=== PATIENT | male | born 1985 | race Caucasian/White ===

== ENCOUNTER 2021-09-13 14:07 | Outpatient (CLI) | payer OTHER, SELFPAY ==
[2021-09-13 13:14] LABS: Calcium* 9.8 mg/dL (8.4-10.6)
[2021-09-15 02:51] LABS: Vitamin D, 1,25-Dihydroxy 53.3 pg/mL (19.9-79.3)
== END 2021-09-13 14:08 | disposition home or self-care (01) ==
PROVIDERS: PCP Family Medicine; Visit Provider Nurse Practitioner Family
DX: Z79.899 Other long term (current) drug therapy (principal)
CPT/HCPCS: 82310; 82652; 84443

== ENCOUNTER 2021-09-30 10:25 | Outpatient (CLI) | payer OTHER, SELFPAY ==
[2021-09-30 12:32] LABS: Albumin* 4.8 g/dL (3.3-5.0); Chloride* 101 mmol/L (96-114); Potassium* 5.2 mmol/L (3.6-5.1); Sodium* 138 mmol/L (135-149)
[2021-09-30 12:34] LABS: Creatinine* 1.1 mg/dL (0.5-1.5); Estimated Glomerular Filt Rate 89 ml/min
[2021-09-30 12:35] LABS: Alanine Aminotransferase* 128 U/L (4-50); Alkaline Phosphatase* 119 U/L (40-150); Aspartate Amino Transferase* 57 U/L (12-35); Bilirubin Total* 0.2 mg/dL (0.1-1.5); Blood Urea Nitrogen* 19 mg/dL (5-24); Calcium* 9.9 mg/dL (8.4-10.6); Carbon Dioxide* 27 mmol/L (20-32); Glucose* 114 mg/dL (60-115); Total Protein* 8.7 g/dL (6.0-8.3)
== END 2021-09-30 10:26 | disposition home or self-care (01) ==
PROVIDERS: PCP Family Medicine; Visit Provider Family Medicine
DX: E83.51 Hypocalcemia (principal); R79.89 Other specified abnormal findings of blood chemistry; Z01.818 Encounter for other preprocedural examination
CPT/HCPCS: 80053

== ENCOUNTER 2021-10-02 06:36 | Day surgery (SDC) | payer OTHER, SELFPAY ==
[2021-10-02] VITALS (26 sets, daily range): BP systolic 119–169; BP diastolic 84–114; PULSE 61–115; RESP 10–18; TEMP 36.4–36.8; O2SAT 88–98; BMI 31.8
[2021-10-02] MEDS: OXYCODONE (CR) 10 MG TAB.ER.12H PO (06:40)
[2021-10-02] MEDS: CELECOXIB 200 MG CAPSULE PO ×2 (06:40→20:57)
[2021-10-02] MEDS: ACETAMINOPHEN 500 MG TABLET 1000 MG PO ×3 (06:40→23:24)
[2021-10-02] MEDS: LACTATED RINGERS 1000 ML 1,000 ML 100 ML IV (07:00)
--- NOTE | 2021-10-02 07:11 | CRLHL7_ITS ---
For Patients: As a result of the Century Cures Act, medical imaging exams and procedure reports are released immediately into your electronic medical record. You may view this report before your referring provider. If you have questions, please contact your health care provider. INDICATION: Total hip arthroplasty. TECHNIQUE: Intraoperative C-arm fluoroscopy. IMPRESSION: Intraoperative C-arm fluoroscopy was provided. Fluoroscopy time 71.1 seconds. One images were captured. Dictated by Herman Austin MD @ 10/02/2021 11:33:09 AM (Electronically Signed)
--- NOTE | 2021-10-02 07:31 | CRLHL7_ITS ---
For Patients: As a result of the Cures Act, medical imaging exams and procedure reports are released immediately into your electronic medical record. You may view this report before your referring provider. If you have questions, please contact your health care provider. Indication: Post Op Technique: Right hip 2 views Comparison: None Findings/mpression: Postoperative changes from right total hip arthroplasty which appear well-aligned. No evidence of periprosthetic fracture. Postoperative subcutaneous emphysema. Dictated by Tani Morris MD @ 10/02/2021 11:55:22 AM (Electronically Signed)
[2021-10-02] MEDS: MIDAZOLAM HCL 1 MG/ML inj IVP (07:46)
[2021-10-02] MEDS: fentaNYL 100 MCG/2 ML inj IVP (07:46)
[2021-10-02] MEDS: ETHYL CHLORIDE 1 APPLICATION 1 APPLIC TOPICAL (07:48)
[2021-10-02] MEDS: SODIUM CHLORIDE 0.9 % (FLUSH) 10 ML SYRINGE IVF (07:48)
--- NOTE | 2021-10-02 07:49 | SUR.PREOP ---
TIME?OUT:?0745 PT/RN SACHIN /VIDAL MCCLENDON?VERIFICATION?OF?SURGICAL?SITE RIGHT HIP,?PROCEDURE RIGHT NERVE BLOCK,?AND?CONSENT OBTAINED?PRIOR?TO?INVASIVE?PROCEDURE.
--- NOTE | 2021-10-02 07:53 | W.PM.NB ---
Nerve Block Nerve Block Time Seen by Provider: 07:54 Date Seen: 10/02/21 Type of block requested by surgeon for post-operative analgesia: MICHAEL/LFCN Time out performed: Yes Verification of patient name: Yes Verification of date of : Yes Site marking: site marked Name of person performing procedure: Nino Continuous monitoring Was continuous monitoring of O2 sat, B/P, home restoration service cleaner, recorded every 15 minutes?: Yes Procedure Checklist: sterile prep, needles and gloves Ultrasound guided. Images saved: Yes Medications given in 5ml increments after negative aspiration: Ropivicaine %: 0.5 mL: 20 Needle gauge: 20 Decadron (mg): 10 Precedex (mcg): 25 Patient tolerated procedure well: Yes Additional comments: Needle noted adjacent to nerve Block Charges Block Charge (with Pro Fee): Other Periph Nerve Block Use of Ultrasound Machine for Block: Yes- US Guidance/pain block
[2021-10-02] MEDS: CEFAZOLIN 2 GM INJ IVP (08:05)
--- NOTE | 2021-10-02 08:55 | SUR.OPER ---
PATIENT QUESTIONS ANSWERED SATISFACTORILY PREOPERATIVELY.? PATIENT BROUGHT TO OR #2 PER CART AFTER BLOCK.? Patient positioned supine on OR #2 bed.?The perioperative?team supported arms bilaterally on arm boards.? Final approval of positioning by surgeon.?
--- NOTE | 2021-10-02 09:59 | SUR.OPER ---
IRRIGATION OF THE RIGHT HIP W/3000cc BAG NACL AT 09:13.
--- NOTE | 2021-10-02 10:02 | P.ORPRC_ITS ---
Procedure Note Date of procedure: 10/02/21 Procedure: PREOPERATIVE DIAGNOSIS: 1. Right hip osteoarthritis, severe, primary POSTOPERATIVE DIAGNOSIS: 1. Right hip osteoarthritis, severe, primary PROCEDURE: 1. Right total hip arthroplasty-anterior approach 2. 08930 - intraoperative fluoroscopy up to 1 hour. SURGEON: Stephen Vasquez MD. FUNDRAISING SALE REPRESENTATIVE: Naun Saucedo PA-C; Christiano POLLACK - Of note, a skilled senior office assistant was critical for this case to aid in patient positioning, tissue retraction, limb manipulation/positioning, and closure. ANESTHESIA: Spinal anesthetic EBL: 250 mL IMPLANTS: DePuy J&J uncemented total hip Arnold cup size 52, hole eliminator, +4 neutral liner Actis stem, standard offset, size 5 +1.5 mm ceramic 36 mm head COMPLICATIONS: None evident INDICATIONS: The patient is a pleasant 36-year-old male who has experienced severe right hip pain and difficulty bearing weight. Workup included x-rays and an MRI which revealed avascular necrosis. This was identified approximately 1 year ago. At that time, he had no collapse of the femoral head. Cord decompression was recommended. The patient did not return until this past late spring or early summer. At that time, he was found to have collapse of the femoral head. Given the deformity, the dysfunction, and the pain, as well as the failure of nonoperative management, recommendation was made for surgery. FINDINGS: Femoral head collapse consistent with what the radiographs had showed. This portion was soft when palpated on the femoral head clearly not healed despite it being multiple weeks if not months from the collapse. There is a small effusion upon entering the joint as well. DESCRIPTION OF PROCEDURE: Following a thorough discussion of risks, benefits, and alternatives consent was obtained and the right hip was marked. The patient was brought to the operating room and placed supine on the operating table. Induction of anesthesia was undertaken. 2 g IV Ancef and 1 g tranexamic acid was administered within 1 hr of incision preoperatively. Proper time-out was performed identifying proper patient, site, procedure. The operative extremity was prepped and draped in the appropriate sterile fashion using ChloraPrep after the patient was positioned on the Andrews table with head in neutral alignment and all bony prominences well padded. C-arm fluoroscopic imaging was utilized to confirm proper pelvis rotation and position, and to get true AP films of both the contralateral left, and the affected right hip. This is for comparison. A longitudinal incision was made starting approximately 1 cm distal to the ASIS, and 3-4 cm lateral. The incision was extended distally aiming toward the lateral border the patella. Sharp incision through skin and bovie cautery through the subcutaneous tissue allowed identification of the TFL fascia. This was sharply divided, and the fascia bluntly released from the muscle fibers as we dissected medial. Upon coming to the medial border, we were able to retract the TFL laterally, and penetrated the deeper fascia and identify the crossing circumflex vessels. These were ligated/cauterized. The rectus was elevated from the capsule, and retractors placed laterally and medially along the femoral neck to help with visualization of the capsule. We then performed an inverted T capsulotomy. The capsule was tagged for later repair. Retractors were placed inside the capsule. The femoral neck was visualized after releasing medially down to the lesser trochanter, along the saddle laterally, and up onto the acetabulum. The femoral neck cut was made in line with our preoperative templating. The head was removed in a single piece, and sized. We turned our attention to acetabular preparation. Initially, the labrum was resected from around the perimeter, the pulvinar was excised, allowing us to visualize the false wall. We started the reaming with a 43 mm reamer. This was medialized down to the true wall. We then enlarged our reamers sequentially up to one size less than the selected cup size. We trialed at the same size and found it to have an excellent fit. The selected cup was then opened, inserted, and impacted in line with the goal of 40? of abduction, and 20-25? of anteversion. This was confirmed on C-arm fluoroscopic imaging to be in the appropriate/goal position. Once the cup was placed we placed a hole eliminator and a liner consistent with preop planning. Attention was turned to the femoral preparation. The limb was extended, externally rotated, and adducted. The posteromedial capsule was released, as retractors were placed allowing excellent access to the proximal femur. Initially a boxing promoter was followed by canal finder followed by various broaches. We broached sequentially up to the size noted above, found it to have excellent rotational control, and trialing various heads and necks, revealed th at appropriate neck offset, and the above noted head size provided the greatest stability, and advent of length, and offset. C-arm fluoroscopic imaging confirmed position of the stem, as well as leg lengths, which were compared with the pre procedure all fluoroscopic images. Trial implants were removed, the real femoral stem inserted, as was the appropriate head. After reducing, the leg was placed through range of motion and stability was confirmed anterior, posterior, and lateral. A 3 min Betadine soak was then performed, and thorough irrigation with normal saline followed. Closure of the capsule was performed with #1 PDS. Bleeding was confirmed to be controlled at this stage, and the TFL fascia was closed with #0 strata fix. Subcutaneous, and subcuticular closure was performed with 2-0 Vicryl and 4-0 Monocryl, respectively. Dressings were applied, and the patient was awoken from anesthesia and transferred the PACU in stable condition. A skilled senior office assistant was critical for this case to aid in patient positioning, tissue retraction, acetabular and proximal femoral exposure, limb manipulation/positioning, dislocation/relocation, patient safety, and closure. PLAN: 1. Weight bear as tolerated operative extremity. 2. 23 hr perioperative antibiotics. 3. Ice. 4. PT/OT consults for ambulation assistance/mobility education. 5. Social work consult for discharge planning. 6. DVT prophylaxis with at SCDs, Sloan Rothman, and Xarelto x5 days followed by aspirin for a total of 1 month verses Xarelto for a full month due to protein C deficiency.
--- NOTE | 2021-10-02 10:48 | W.ANESCHARGE ---
Anesthesia Charges Start Date/Time Anesthesia Start Date: 10/02/21 Anesthesia Start Time: 07:55 Stop Date/Time Anesthesia Stop Date: 10/02/21 Anesthesia Stop Time: 10:47 Summary Emergency: No
--- NOTE | 2021-10-02 10:50 | W.ANESCHARGE ---
Anesthesia Charges Start Date/Time Anesthesia Start Date: 10/02/21 Anesthesia Start Time: 07:55 Stop Date/Time Anesthesia Stop Date: 10/02/21 Anesthesia Stop Time: 10:47 Summary Emergency: No
[2021-10-02] MEDS: fentaNYL 100 MCG/2 ML inj 50 MCG IVP ×2 (11:04→11:10)
--- NOTE | 2021-10-02 11:32 | SUR.PHASEI ---
PT. VITAL SIGNS STABLE. TRANSFER PT. TO M/S VIA BED.
[2021-10-02] MEDS: LACTATED RINGERS 1000 ML 1,000 ML 75 ML IV (11:49)
[2021-10-02] MEDS: HYDROmorphone 0.5 mg/0.5 ml inj IVP ×5 (12:01→20:58)
--- NOTE | 2021-10-02 12:15 | PM.IMPN1 ---
Progress Note: A&P Assessment and plan (1) Avascular necrosis of bone of hip: Problem details: right Status: Acute Plan 1. s/p Right total hip arthroplasty-anterior approach 2. Hx of alcoholism 3. Hx of Prot C deficiency 4. Hx of Anxeity and Depression PLan -pain control, diet, dvt ppx per surgery service -cbc and bmp in AM Subjective Date Seen: 10/02/21 Interval history: s/p Right total hip arthroplasty-anterior approach Doing well following surgery post op pain controlled denies chest pain, sob, nausea, vomiting Exam Narrative: Exam Narrative: Gen: no acute distress HEENT: NCAT EOMI MMM CV: RRR normal s1 s2 Lungs: CTAB Abd: soft, nt, nd Neuro: AOX3; nonfocal screening exam MSK: age appropriate muscle mass Const: Vital Signs, click to edit/add: Vital Signs - 24 hr 10/02/21 06:55 10/02/21 07:46 10/02/21 10:44 Temperature 98.1 F 97.6 F Pulse Rate 92 84 68 Respiratory Rate 16 16 18 Blood Pressure 130/85 122/85 121/84 Pulse Oximetry 97 98 95 10/02/21 10:50 10/02/21 10:55 10/02/21 11:00 Temperature 97.5 F L Pulse Rate 61 69 89 Respiratory Rate 16 14 12 Blood Pressure 129/84 135/85 119/85 Pulse Oximetry 96 96 94 10/02/21 11:05 10/02/21 11:10 10/02/21 11:15 Temperature 97.5 F L Pulse Rate 75 82 79 Respiratory Rate 10 L 12 10 L Blood Pressure 141/91 H 135/88 132/85 Pulse Oximetry 94 93 96 10/02/21 11:20 10/02/21 11:25 10/02/21 11:30 Temperature 97.7 F Pulse Rate 89 89 87 Respiratory Rate 10 L 12 12 Blood Pressure 142/89 H 149/84 H 143/93 H Pulse Oximetry 96 95 96
[2021-10-02] MEDS: OXYCODONE 5 MG TABLET PO ×5 (12:40→23:24)
[2021-10-02] MEDS: hydrOXYzine pamoate 25 MG CAPSULE PO ×3 (12:40→20:58)
[2021-10-02] MEDS: CEFAZOLIN 2 GM in 0.9 % SODIUM CHLORIDE Mini-bag 100 ML IVPB ×2 (13:57→21:55)
--- NOTE | 2021-10-02 17:35 | PC.NURSE ---
PATIENT TO FLOOR FROM PACU AROUND 1140, ALERT AND ORIENTED, STRONG MOVEMENT OF LOWER EXTREMITY, DRESSING TO RIGHT HIP CDI, REPORTING PAIN 6/10 INITIALLY A BURNING HAS SINCE MOVED TO A MORE PAINFUL TIGHTNESS 6/10 AT REST AND 8/10 WITH MOVEMENT, UP SBA WITH WALKER AND BELT TOLERATING WELL, TOLERATING REGULAR DIET WITH NAUSEA OR VOMITING, KNEE TEDS, FOOT SCDS, AT BEDSIDE AND VERY SUPPORTIVE.
[2021-10-02] MEDS: SENNOSIDES 1 TAB TABLET 2 TAB PO (20:57)
[2021-10-02] MEDS: BUSPIRONE 10 MG TABLET PO (21:55)
[2021-10-03] MEDS: OXYCODONE 5 MG TABLET PO ×4 (02:28→11:47)
[2021-10-03 03:00] VITALS: BP 158/103; PULSE 104; RESP 16; TEMP 36.6; O2SAT 95
--- NOTE | 2021-10-03 05:13 | PC.NURSE ---
Shift 7p-7a: Pt. AOx4, follows commands. VSS on RA. Pt. ambulated in hallways w/ RW multiple times during shift, and ambulating to toilet without difficulties. Pt. receiving oxycodone PRN for pain management, with use of dilauded PRN for pain breakthrough. Pt. tolerating diet, saline locked for adequate PO, received scheduled senna, BM pending. Pt.'s RT hip surgical incision site dressing C/D/I, pt. applying ice packs PRN. Plan for possible discharge today
[2021-10-03] MEDS: ACETAMINOPHEN 500 MG TABLET 1000 MG PO ×2 (05:52→11:47)
[2021-10-03] MEDS: CEFAZOLIN 2 GM in 0.9 % SODIUM CHLORIDE Mini-bag 100 ML IVPB (05:53)
[2021-10-03] MEDS: HYDROmorphone 0.5 mg/0.5 ml inj IVP (06:40)
[2021-10-03 07:00] VITALS: BP 112/59; PULSE 98; RESP 16; TEMP 36.6; O2SAT 95
[2021-10-03 07:43] LABS: Hematocrit 39.9 % (37.0-53.0); Hemoglobin* 13.4 gm/dL (13.5-17.5); Immature Granulocytes Abs Auto 0.02 K/uL (0.00-0.30); Lymphocytes Percent Auto 10.4 % (20-44); Mean Corpuscular HGB Conc 34 gm/dL (32-36); Mean Corpuscular Hemoglobin 30 pg (26-34); Mean Corpuscular Volume 89 fL (80-100); Monocytes Percent Auto 11.1 % (0.0-11.0); Neutrophils Percent Auto 78.3 % (42.0-72.0); Platelet Count* 319 K/uL (140-440); RDW Coefficient of Variation % 13.3 % (11.5-15.5); Red Blood Count 4.51 m/uL (4.30-5.90)
[2021-10-03 07:50] LABS: Slide Review Reflex No
[2021-10-03 07:55] LABS: Chloride* 102 mmol/L (96-114); Potassium* 4.3 mmol/L (3.6-5.1); Sodium* 137 mmol/L (135-149)
[2021-10-03 07:58] LABS: Blood Urea Nitrogen* 19 mg/dL (5-24); Carbon Dioxide* 29 mmol/L (20-32); Est. Creatinine Clearance* 101.14; Estimated Glomerular Filt Rate 99 ml/min
[2021-10-03 07:59] LABS: Calcium* 8.5 mg/dL (8.4-10.6); Glucose* 115 mg/dL (60-115)
[2021-10-03] MEDS: BUSPIRONE 10 MG TABLET PO (08:40)
[2021-10-03] MEDS: CELECOXIB 200 MG CAPSULE PO (08:40)
[2021-10-03] MEDS: SENNOSIDES 1 TAB TABLET 2 TAB PO (08:41)
[2021-10-03] MEDS: VENLAFAXINE ER 75 MG CAPSULE 375 MG PO (08:41)
[2021-10-03] MEDS: RIVAROXABAN 10 MG TABLET PO (08:41)
[2021-10-03] MEDS: hydrOXYzine pamoate 25 MG CAPSULE PO ×2 (08:52→11:47)
--- NOTE | 2021-10-03 09:53 | PM.ORPN ---
Subjective Subjective Date Seen: 10/03/21 Principal diagnosis: Status postop day 1, right total hip arthroplasty - anterior approach Interval history: Patient reports doing well. No acute events over night. Pain managed with scheduled /PRN medications and ice. Reports that Dilaudid does better for him. He has also complained of ipsilateral right knee pain which is chronic. This is better with using knee brace. DVT prophylaxis rivaroxaban, bilateral knee high Sloan stockings, and SCDs. Denies fevers, chills, aches, N/V, CP, SOB/LENZ, tachycardia, or lightheadedness. Feels that his elevated heart rate and blood pressure is due to anxiety. He is taking his anxiety medications. Ortho Exam Narrative Exam Narrative: -Patient appears comfortable in bed; no apparent acute distress; watching TV -Alert and oriented times 3 -Operative hip moderately swollen; soft tissues supple; no obvious erythema. No ecchymosis. Warmth appropriate -Surgical dressing clean, dry, intact; no obvious drainage, no erythematous streaking peripheral to the bandage -Bilateral calves soft and supple; no significant swelling, edema, tenderness, erythema, discoloration, warmth, or palpable cords -2+ DP/PT pulses, intact dermatomes and myotomes distally (5/5 strength). Mild numbness about the lateral femoral cutaneous nerve distribution. Const Vital Signs, click to edit/add: Vital Signs - 24 hr 10/02/21 10:44 10/02/21 10:50 10/02/21 10:55 Temperature 97.6 F Pulse Rate 68 61 69 Pulse Rate [Left Pulse Oximeter] Respiratory Rate 18 16 14 Blood Pressure 121/84 129/84 135/85 Blood Pressure [ARMR] Pulse Oximetry 95 96 96 10/02/21 11:00 10/02/21 11:05 10/02/21 11:10 Temperature 97.5 F L Pulse Rate 89 75 82 Pulse Rate [Left Pulse Oximeter] Respiratory Rate 12 10 L 12 Blood Pressure 119/85 141/91 H 135/88 Blood Pressure [ARMR] Pulse Oximetry 94 94 93 10/02/21 11:15 10/02/21 11:20 10/02/21 11:25 Temperature 97.5 F L Pulse Rate 79 89 89 Pulse Rate [Left Pulse Oximeter] Respiratory Rate 10 L 10 L 12 Blood Pressure 132/85 142/89 H 149/84 H Blood Pressure [ARMR] Pulse Oximetry 96 96 95 10/02/21 11:30 10/02/21 11:40 10/02/21 11:45 Temperature 97.7 F 97.7 F Pulse Rate 87 95 Pulse Rate [Left Pulse Oximeter] Respiratory Rate 12 16 16 Blood Pressure 143/93 H Blood Pressure [ARMR] 144/97 H 134/100 H Pulse Oximetry 96 95 10/02/21 12:00 10/02/21 12:15 10/02/21 12:30 Temperature 97.7 F 97.7 F Pulse Rate Pulse Rate [Left Pulse Oximeter] 101 H 107 H 115 H Respiratory Rate 16 16 16 Blood Pressure Blood Pressure [ARMR] 151/114 H 154/101 H 157/101 H Pulse Oximetry 93 91 93 10/02/21 13:00 10/02/21 13:30 10/02/21 14:00 Temperature Pulse Rate Pulse Rate [Left Pulse Oximeter] 103 H 104 H 100 Respiratory Rate 16 18 16 Blood Pressure Blood Pressure [ARMR] 145/102 H 148/100 H 124/95 H Pulse Oximetry 91 93 90 10/02/21 15:00 10/02/21 16:00 10/02/21 17:00 Temperature 97.7 F Pulse Rate Pulse Rate [Left Pulse Oximeter] 110 H 106 H 100 Respiratory Rate 16 16 16 Blood Pressure Blood Pressure [ARMR] 167/111 H 139/110 H 149/106 H Pulse Oximetry 90 88 90 10/02/21 18:02 10/02/21 19:00 10/02/21 23:00 Temperature 98.3 F 97.8 F Pulse Rate Pulse Rate [Left Pulse Oximeter] 110 H 102 H 100 Respiratory Rate 16 16 16 Blood Pressure Blood Pressure [ARMR] 149/107 H 162/99 H 169/101 H Pulse Oximetry 93 93 95 10/03/21 03:00 10/03/21 07:00 Temperature 98 F 98 F Pulse Rate Pulse Rate [Left Pulse Oximeter] 104 H 98 Respiratory Rate 16 16 Blood Pressure Blood Pressure [ARMR] 158/103 H 112/59 L Pulse Oximetry 95 95 Assessment and Plan Assessment and plan (1) Avascular necrosis of bone of hip: Problem details: right Status: Acute (2) Status post total hip replacement, right: Problem details: POD1 - anterior approach Status: Acute Assessment and Plan: - Complete 23 hour perioperative antibiotics. - PT/OT consult for education and assistance. - Social work consult for discharge planning - Prescribed analgesics as needed - DVT prophylaxis: Rivaroxaban (1 month duration due to C deficiency) bilateral knee high Sloan stockings and SCDs - Anticipation is for discharge to home with spouse today 10/03/2021 if the patient remains medically stable, pain is controlled, and they are safe with mobilization. Patient has elevated heart rate and blood pressure per him appear to be more related to stress/anxiety; he is not having any chest pain or shortness of breath. (3) Protein C deficiency: Status: Acute (4) Acute blood loss anemia: Problem details: Surgically related, hemoglobin 13.4-asymptomatic Status: Acute
--- NOTE | 2021-10-03 10:01 | P.DS_ITS ---
DS: Providers Provider Date Seen: 10/03/21 Date of admission: [facility] Primary care physician: Efraín Martínez MD Consults: 10/02/21 11:42 Consult to Occupational Therapy [CONS] Routine Comment: Reason(s) for OT Consult:: ADLs Prior to Discharge Any Restrictions?:: No Restrictions Comment: Consult to Physical Therapy [CONS] Routine Comment: Ambulate in [place] today Reason(s) for PT Consult:: Evaluate and Treat Any Restrictions?:: No Restrictions Comment: Nursing Activity Consult to Physician [CONS] Routine Comment: Consulting Provider: Hospitalists Has provider been notified: No Consult to Garment Turner [CONS] Routine Comment: Reason for Consult:: Discharge Planning Needs Attending Physician on discharge: Stephen Vasquez MD Date of Discharge: 10/03/21 DS: Diagnosis Discharge Diagnosis (1) Avascular necrosis of bone of hip: Status: Acute Problem details: right (2) Status post total hip replacement, right: Status: Acute Problem details: anterior approach, 10/02/21 (3) Protein C deficiency: Status: Acute (4) Acute blood loss anemia: Status: Acute Problem details: Surgically related, hemoglobin 13.4-asymptomatic DS: Summary Hospital Course Hospital Course: The patient has a history of right hip femoral head avascular necrosis. After appropriate preoperative evaluation, the patient underwent right total hip arthroplasty. Postoperatively given anticoagulation for deep vein thrombosis p rophylaxis (rivaroxaban for 30 days due to protein C deficiency). They progressed to PT/OT and were felt ready and prepared for discharged to home with appropriate pain medication and anticoagulation medications. Status at Discharge Functional status at discharge: uses cane/walker Overall status at discharge: patient is progressing back to baseline Time Spent with Patient Time attestation: Total time spent providing and/or coordinating discharge services: Time spent: Less than 30 minutes Exam Const: Vital Signs, click to edit/add: Vital Signs - 24 hr 10/02/21 10:44 10/02/21 10:50 10/02/21 10:55 Temperature 97.6 F Pulse Rate 68 61 69 Pulse Rate [Left P ulse Oximeter] Respiratory Rate 18 16 14 Blood Pressure 121/84 129/84 135/85 Blood Pressure [AR MR] Pulse Oximetry 95 96 96 10/02/21 11:00 10/02/21 11:05 10/02/21 11:10 Temperature 97.5 F L Pulse Rate 89 75 82 Pulse Rate [Left P ulse Oximeter] Respiratory Rate 12 10 L 12 Blood Pressure 119/85 141/91 H 135/88 Blood Pressure [AR MR] Pulse Oximetry 94 94 93 10/02/21 11:15 10/02/21 11:20 10/02/21 11:25 Temperature 97.5 F L Pulse Rate 79 89 89 Pulse Rate [Left P ulse Oximeter] Respiratory Rate 10 L 10 L 12 Blood Pressure 132/85 142/89 H 149/84 H Blood Pressure [AR MR] Pulse Oximetry 96 96 95 10/02/21 11:30 10/02/21 11:40 10/02/21 11:45 Temperature 97.7 F 97.7 F Pulse Rate 87 95 Pulse Rate [Left P ulse Oximeter] Respiratory Rate 12 16 16 Blood Pressure 143/93 H Blood Pressure [AR MR] 144/97 H 134/100 H Pulse Oximetry 96 95 10/02/21 12:00 10/02/21 12:15 10/02/21 12:30 Temperature 97.7 F 97.7 F Pulse Rate Pulse Rate [Left P ulse Oximeter] 101 H 107 H 115 H Respiratory Rate 16 16 16 Blood Pressure Blood Pressure [AR MR] 151/114 H 154/101 H 157/101 H Pulse Oximetry 93 91 93 10/02/21 13:00 10/02/21 13:30 10/02/21 14:00 Temperature Pulse Rate Pulse Rate [Left P ulse Oximeter] 103 H 104 H 100 Respiratory Rate 16 18 16 Blood Pressure Blood Pressure [AR MR] 145/102 H 148/100 H 124/95 H Pulse Oximetry 91 93 90 10/02/21 15:00 10/02/21 16:00 10/02/21 17:00 Temperature 97.7 F Pulse Rate Pulse Rate [Left P ulse Oximeter] 110 H 106 H 100 Respiratory Rate 16 16 16 Blood Pressure Blood Pressure [AR MR] 167/111 H 139/110 H 149/106 H Pulse Oximetry 90 88 90 10/02/21 18:02 10/02/21 19:00 10/02/21 23:00 Temperature 98.3 F 97.8 F Pulse Rate Pulse Rate [Left P ulse Oximeter] 110 H 102 H 100 Respiratory Rate 16 16 16 Blood Pressure Blood Pressure [AR MR] 149/107 H 162/99 H 169/101 H Pulse Oximetry 93 93 95 10/03/21 03:00 10/03/21 07:00 Temperature 98 F 98 F Pulse Rate Pulse Rate [Left P ulse Oximeter] 104 H 98 Respiratory Rate 16 16 Blood Pressure Blood Pressure [AR MR] 158/103 H 112/59 L Pulse Oximetry 95 95 DS: Data Data Completed and Pending Labs on day of discharge: Labs from last 24 hours 10/03/21 10/03/21 07:07 07:07 WBC 11.00 RBC 4.51 Hgb 13.4 L Hct 39.9 MCV 89 MCH 30 MCHC 34 RDW Coeff of Mahad 13.3 Plt Count 319 Neut % (Auto) 78.3 H Lymph % (Auto) 10.4 L Fisher % (Auto) 11.1 H Eos % (Auto) 0.0 Baso % (Auto) 0.0 Neut # (Auto) 8.60 H Lymph # (Auto) 1.10 Fisher # (Auto) 1.20 H Eos # (Auto) 0.00 Baso # (Auto) 0.00 Abs Immat Gran (auto) 0.02 Sodium 137 Potassium 4.3 Chloride 102 Carbon Dioxide 29 BUN 19 Creatinine 1.0 Estimated Creat Clear 101.14 Estimated GFR 99 Glucose 115 Calcium 8.5 Discharge Plan Discharge Disposition: Home, Self-Care Discharging Surgeon: Stephen Vasquez Follow-Up Appointment: [facility] - justina - previously scheduled. Prescriptions: New acetaminophen 500 mg capsule 500 - 1,000 mg PO Q6H MDD 4000mg PRNQty: 100 0RF sennosides-docusate sodium [Senna-S] 8.6-50 mg tablet 1 - 4 tab-cap PO BID PRN (Reason: constipation) Qty: 60 0RF Rx Instructions: Hold medication if experiencing loose stools. oxycodone 5 mg tablet 2.5 - 5 mg PO Q4-6H MDD 6 PRN (Reason: pain) Qty: 42 0RF Rx Instructions: Take as needed for postop pain: 2.5mg mild pain, 5mg moderate-severe pain; wean as tolerated. rivaroxaban 10 mg tablet 10 mg PO DAILY Qty: 29 0RF Rx Instructions: Medication for deep vein clot prevention post surgery. Will take for full month postop due to Protein C Deficiency. venlafaxine [Effexor XR] 150 mg capsule,extended release 24hr 300 mg PO QAM Qty: 60 2RF Rx Instructions: total dose is 375mg. venlafaxine [Effexor XR] 75 mg capsule,extended release 24hr 75 mg PO QAM Qty: 30 2RF Rx Instructions: take 75mg with the other dosing of 300mg for total of 375mg. Continued buspirone 10 mg tablet 10 mg PO BID Qty: 60 1RF naltrexone 50 mg tablet 50 mg PO .qod Qty: 30 0RF hydroxyzine pamoate [Vistaril] 25 mg capsule 25 mg PO QID PRN Discontinued venlafaxine [Effexor XR] 150 mg capsule,extended release 24hr 300 mg PO QPM Qty: 60 1RF Rx Instructions: take two cap po qd upon awakening for mood, anxiety No Action venlafaxine 150 mg tablet extended release 24 hr 300 mg PO QAM Qty: 180 1RF Rx Instructions: take two tab po every morning for mood Activity Level: Activity as Tolerated, Weight Bearing as Tolerated, Use Cane and Use Walker Activity Detail: Wound: ?Do not remove original dressing; we will remove this at first postop visit in 1 week. Only remove dressing if integrity is in question. ?No immersing wound in water; showering okay; light scrub with your hand and body soap, rinse, dab dry ?Sutures are under the skin, will dissolve; allow surgical glue to come off naturally; do not scrub the wound or apply ointments/lotions ?Call our office with any redness that streaks, excessive drainage from the wound, or wound gapping. Ice/Elevate: ?Ice as needed for swelling and discomfort (cryocuff or ice pack); elevate frequently above the heart SLOAN socks: ?Wear for 1 month, remove for 1 hour 3 times per day ?These are frustrating to take on/off, but are important for blood clot prevention for 1 month after surgery Blood Clot Prevention (DVT): ?Medication: rivaroxaban Driving: ?Do not drive while taking narcotic pain medication ?Anticipate 4-6 weeks no driving if operative leg is driving leg Dental: ?No elective dental work for 6 months post-op. If there is an urgent/emergent dental need, contact our office for an antibiotic prescription. Smoking/Alcohol: ?Do not smoke; do no drink alcohol especially when taking postoperative oral narcotic medication Seek Care from you Primary Care Provider if you experience the following issues in the postoperative phase and beyond: ?Bacterial infections such as: pneumonia, bacterial skin infection (cellulitis), UTI, high fever, chills unrelated to the operative body part - call your primary care physician urgently for treatment in hopes to protect your health and the metal implant. Referrals: ?PT, OT per patient preference - evaluate treat total hip arthroplasty protocol (the training, ROM, ADLs, knee-high Sloan socks) Follow up: ?Ortho surgeon follow-up in 6 weeks; repeat radiographs AP pelvis, cross-table lateral right hip ?PA-C visit in 1 week *If there are any acute concerns regarding your surgery, please call our orthopedic clinic ([phone]) Discharge Diet: Regular Patient Instructions: Acetaminophen (By mouth), Oxycodone, Rapid Release (By mouth), Venlafaxine (By mouth) (Effexor, Effexor XR), Rivaroxaban (By mouth), Senna (By mouth), Total Hip Replacement (DC) Forms: Work/Release Restrictions Follow-up: [facility] [Other] - 10/04/21 10:45 am Efraín Martínez MD [Primary Care Provider] - Naun Saucedo, DAMION [Physician Automobile Mechanic Helper] - 10/08/21 1:00 pm ([facility]) Discharge Orders: Discharge Order (Routine); Ordered 10/03/21 Ordered By: Naun Saucedo
[2021-10-03 11:00] VITALS: BP 151/92; PULSE 97; RESP 16; TEMP 36.6; O2SAT 95
--- NOTE | 2021-10-03 13:17 | PC.NURSE ---
PATIENT DISCHARGED TO HOME WITH , UP SBA WITH WALKER AND BELT TOLERATING WELL, REPORTING PAIN IN RIGHT HIP AND RIGHT KNEE 6-10/16 BEING MANAGED WITH PRN OXYCODONE,VISTARIL AND SCHEDULED TYLENOL, TOLERATING REGULAR DIET NO NAUSEA OR VOMITNG, DRESSING CDI, PATIENT VERBALIZED UNDERSTANDING OF DISCHARGE INFORMATION AND HAD NO FURTHER QUESTIONS AT THIS TIME, LEFT TO HOME AROUND 1238.
--- NOTE | 2021-10-03 18:09 | P.IMPN_ITS ---
Progress Note: A&P Assessment and plan (1) Avascular necrosis of bone of hip: Problem details: right Status: Acute Assessment and Plan: Status post total right hip arthroplasty 10/03/19 (2) Status post total hip replacement, right: Problem details: anterior approach, 10/02/21 Status: Acute Assessment and Plan: Doing well postoperatively. Will continue outpatient therapy. Discharging today (3) Protein C deficiency: Status: Acute Assessment and Plan: One month of Xarelto. (4) Acute blood loss anemia: Problem details: Surgically related, hemoglobin 13.4-asymptomatic Status: Acute Assessment and Plan: No issues Subjective Date Seen: 10/03/21 Interval history: Patient reports doing well. No acute events over night. Pain managed with scheduled /PRN medications and ice. Reports that Dilaudid does better for him. He has also complained of ipsilateral right knee pain which is chronic. This is better with using knee brace. DVT prophylaxis rivaroxaban, bilateral knee high Sloan stockings, and SCDs. Denies fevers, chills, aches, N/V, CP, SOB/LENZ, ta chycardia, or lightheadedness. Feels that his elevated heart rate and blood pressure is due to anxiety. He is taking his anxiety medications. Exam 2 Narrative: Exam Narrative: Right hip surgical dressing intact, relatively mild bruising noted. No concerns for hematoma or infection. Const: Vital Signs, click to edit/add: Vital Signs - 24 hr 10/02/21 19:00 10/02/21 23:00 10/03/21 03:00 Temperature 98.3 F 97.8 F 98 F Pulse Rate [Left P ulse Oximeter] 102 H 100 104 H Respiratory Rate 16 16 16 Blood Pressure [AR MR] 162/99 H 169/101 H 158/103 H Pulse Oximetry 93 95 95 10/03/21 07:00 10/03/21 11:00 Temperature 98 F 98 F Pulse Rate [Left P ulse Oximeter] 98 97 Respiratory Rate 16 16 Blood Pressure [AR MR] 112/59 L 151/92 H Pulse Oximetry 95 95 Documenting provider has reviewed patient's vital signs: yes Common normals: no apparent distress, oriented x3, alert and well nourished General appearance: well kempt Orientation/consciousness: Yes awake, Yes oriented to person and Yes oriented to place HENMT: Common normals: normocephalic Head and scalp: normocephalic Face and sinus: normal facial exam Eye: Common normals: PERRL, conjunctivae normal and no scleral icterus Conjunctiva: conjunctiva(e) normal Pupil: PERRL Chest: Chest: symmetrical chest wall rise Resp: Common normals: normal respiratory effort, no retractions, no use of accessory muscles and clear to auscultation bilaterally Auscultation: clear to auscultation bilaterally Cardio: Common normals: regular rate, regular rhythm, S1 normal heart sound and S2 normal heart sound Rate: regular rate Rhythm: regular rhythm Heart sounds: S1 normal and S2 normal GI: Common normals: Normal to inspection, nondistended, normoactive bowel sounds present and soft to palpation Palpation: soft Neuro: Common normals: oriented x3, CN's II-XII intact bilaterally, moves all extremities, no focal motor deficits and no sensory deficits noted Sensorium/orientation: awake, alert, oriented to person and oriented to place Speech: speech normal Psych: Common normals: mental status grossly normal, thought process normal, cooperative, affect normal, speech normal and activity/motor behavior normal Appearance: grossly normal and well kempt Speech: normal speech Thought process: normal thought process Labs Labs: Laboratory Results - last 24 hr 10/03/21 10/03/21 07:07 07:07 WBC 11.00 RBC 4.51 Hgb 13.4 L Hct 39.9 MCV 89 MCH 30 MCHC 34 RDW Coeff of Mahad 13.3 Plt Count 319 Neut % (Auto) 78.3 H Lymph % (Auto) 10.4 L Dup[place] % (Auto) 11.1 H Eos % (Auto) 0.0 Baso % (Auto) 0.0 Neut # (Auto) 8.60 H Lymph # (Auto) 1.10 [place] # (Auto) 1.20 H Eos # (Auto) 0.00 Baso # (Auto) 0.00 Abs Immat Gran (auto) 0.02 Sodium 137 Potassium 4.3 Chloride 102 Carbon Dioxide 29 BUN 19 Creatinine 1.0 Estimated Creat Clear 101.14 Estimated GFR 99 Glucose 115 Calcium 8.5
== END 2021-10-03 12:38 | disposition home or self-care (01) ==
LOC: OR 06:37 → MEDSURG 06:46
PROVIDERS: PCP Family Medicine; Visit Provider Orthopaedic Surgery Sports Medicine
PROC: (CPT 27130; principal; 2021-10-02 08:00)
DX: M16.11 Unilateral primary osteoarthritis, right hip (principal); M87.851 Other osteonecrosis, right femur; G89.29 Other chronic pain; M25.561 Pain in right knee; D68.59 Other primary thrombophilia; F10.21 Alcohol dependence, in remission; F41.8 Other specified anxiety disorders
CPT/HCPCS: 27130; 01214; 01402; 36415; 64450; 73501; 73502; 76942; 80048; 85025; 97110; 97116; 97161; 97165; 97535; A9270; C1776; J0690; J1100; J1170; J2250; J2405; J2704; J2795; J3010; J7120

== ENCOUNTER 2021-10-16 08:00 | Outpatient (RCR) | payer OTHER, SELFPAY ==
--- NOTE | 2021-09-18 15:12 | PT.OPEX ---
PT [place] [facility] PT [facility] Eval Start: 09/18/21 08:44 Freq: Status: Active Protocol: Document 09/18/21 08:44 ACW (Rec: 09/18/21 08:53 ACW [id number]) E-Signed By Nataly Moody, PT, ATC Physical Therapy Outpatient Evaluation Insurance Information Insurance Name [employer] Medical Diagnosis avascular necrosis right hip Treating Diagnosis decreased hip ROM with pain pre op Referring MD Vasquez Subjective Date of Surgery (If applicable) 09/23/21 Precautions Weight Bearing Status Full Weight Bearing Objective Range of Motion right hip ROM: tgta=119 left hip: flex= 120 abd=60 abd=65 ER=30 ER=60 Ir=10 IR=30 Strength hip MMTs are 5/5 bilaterally Assessment Assessment/Impression pt is a 35 yo male, with avascular necrosis of the right hip which started early 2021. 2 wks ago the pain was a 10/10 for about 1 wk. now this past week the pain is at 3/10. 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 He does everything needed for ADLs and work - he just hurts . every 6th step or so he gets a zinger. His hip ROM on the right is less than the left. his MMTs are 5/5 bilaterally. He has walked on crutches before . pt has a and 3 young children at home. surgery is in 5 days pt is returning for post op PT on 10/02/21 Plan of Care Rehabilitation Potential Excellent Coordination/Communication With Referral Source Treatment Plan/Direct Interventions Manual Therapy,Therapeutic Exercises Frequency/Duration 1 time per week for 8-10 wks Patient Will Be Discharged From Therapy Independently Progressing Evaluation Billing Complexity Low
== END 2021-12-04 13:16 | disposition home or self-care (01) ==
PROVIDERS: PCP Family Medicine; Visit Provider Orthopaedic Surgery Sports Medicine
DX: M25.551 Pain in right hip (principal); Z51.89 Encounter for other specified aftercare
CPT/HCPCS: 97110; 97161

== ENCOUNTER 2021-10-16 19:42 | Outpatient (CLI) | payer OTHER, SELFPAY ==
--- NOTE | 2021-10-29 12:54 | W.PM.SLEEP ---
Sleep Study Details Details Interpreting Provider: Bigg Jarquin MD Date of Sleep Study: 10/16/21 Sleep Study Details: STUDY TYPE:? [Home sleep study ? BMI:? 32 ORDERING PROVIDER:? Tanya INDICATION:? Concerns about sleep apnea ? SLEEP SUMMARY:? Monitor time 572.5 minutes RESPIRATORY SUMMARY:? AHI 19.2, supine AHI 37, left lateral AHI 5.6, right lateral AHI 0. Low oxygen 79% 2.4% of the study oxygen less than 90%, 1.5% of study oxygen less than 85% PERIODIC LIMB MOVEMENTS OF SLEEP:? Not recorded CARDIAC:? 44-114, mean 66.2. Snore summary 7.3% IMPRESSION:? Moderate obstructive sleep apnea overall with an AHI of 19.2. There were significant positional dependency. RECOMMENDATION: AutoSet CPAP at a pressure of 4-17, dental appliance and/or airway expansion surgery. I would favor CPAP.
== END 2021-10-16 19:43 | disposition home or self-care (01) ==
LOC: SLEEP 19:43
PROVIDERS: PCP Family Medicine; Visit Provider Family Medicine
DX: G47.33 Obstructive sleep apnea (adult) (pediatric) (principal)
CPT/HCPCS: 95806

== ENCOUNTER 2021-12-24 12:06 | Outpatient (CLI) | payer OTHER, SELFPAY ==
--- OUTSIDE RECORDS SUMMARY | 2021-12-24 12:16 | XMS_ITS | Clinical Summary ---
:1985 Author Organization [employer] [facility] [place] [address] Care Team Providers Name Role Phone Efraín Martínez MD Primary Care Provider Allergies No known active allergies Medications Medication Sig Dispensed Refills Start Date End Date Status oxyCODONE-acetamino Take 1 tablet by 15 tablet 0 11/04/2010 Active phen, 5-325 mg, mouth every 4 hours (PERCOCET 5-325) if needed for Pain. 5-325 mg per tablet Max acetaminophen dose: 4000mg in 24 hrs. busPIRone (BUSPAR) Take 10 mg by mouth 2 0 7 Active 10 mg tablet times daily. propranolol ER Take 60 mg by mouth 3 01/17/2017 Active (INDERAL LA) 60 mg once daily. Cs24 Sustained-Release capsule venlafaxine Take 150 mg by mouth 1 01/17/2017 Active (EFFEXOR XR) 75 mg once daily with a cp24 meal. Extended-Release capsule Active Problems Not on file Social History Tobacco Use Types Packs/Day Years Used Date Never Smoker Smokeless Tobacco: Never Used Alcohol Use Standard Drinks/Week Comments Yes 0 (1 standard drink = 0.6 oz pure alcoho l) Sex Assigned at Date Recorded Not on file Obstetrics History Last Filed Vital Signs Vital Sign Reading Time Taken Comments Blood Pressure 147/92 01/24/2017 3:19 PM CORK COMPOUNDER Pulse 91 01/24/2017 3:19 PM CORK COMPOUNDER Temperature 37.1 ??C (98.7 ??F) 01/24/2017 3:19 PM CORK COMPOUNDER Respiratory Rate 16 01/24/2017 3:19 PM CORK COMPOUNDER Oxygen Saturation 98% 01/24/2017 3:19 PM CORK COMPOUNDER Inhaled Oxygen Concentration - - Weight 87.8 kg (193 lb 9.6 oz) 01/24/2017 12:23 AM CORK COMPOUNDER Height 182.9 cm (6') 01/24/2017 12:23 AM CORK COMPOUNDER Body Mass Index 26.26 01/24/2017 12:23 AM CORK COMPOUNDER Plan of Treatment Not on file Results Not on filefrom Last 3 Months Insurance Payer Benefit Plan / Subscriber ID Effective Dates Phone Addre ss Type Group PREFERRED ONE PREFERRED ONE [id number] 2019-Present [address] [place] [address] (Home) [place] [phone] (Work) Care Teams Senior Consulting Manager Relationship Specialty Start Date End Date Efraín Martínez MD PCP - General Family Practice 01/24/17
[2021-12-24 13:50] LABS: Aspartate Amino Transferase* 31 U/L (12-35); Bilirubin Direct* 0.2 mg/dL (0.0-0.5); Bilirubin Total* 0.4 mg/dL (0.1-1.5); Total Protein* 8.2 g/dL (6.0-8.3)
[2021-12-24 13:51] LABS: Alanine Aminotransferase* 43 U/L (4-50); Alkaline Phosphatase* 98 U/L (40-150)
== END 2021-12-24 12:07 | disposition home or self-care (01) ==
PROVIDERS: PCP Family Medicine; Visit Provider Nurse Practitioner Family
DX: F10.11 Alcohol abuse, in remission (principal)
CPT/HCPCS: 80076

== ENCOUNTER 2022-02-11 08:05 | Outpatient (CLI) | payer OTHER, SELFPAY ==
--- OUTSIDE RECORDS SUMMARY | 2022-02-11 08:06 | XMS_ITS | Clinical Summary ---
:1985 Author Organization [employer] [facility] [place] [address] Care Team Providers Name Role Phone Efraín [...] Comments Blood Pressure 147/92 01/24/2017 3:19 PM ENROLLMENT MANAGEMENT DIRECTOR Pulse 91 01/24/2017 3:19 PM ENROLLMENT MANAGEMENT DIRECTOR Temperature 37.1 ??C (98.7 ??F) 01/24/2017 3:19 PM ENROLLMENT MANAGEMENT DIRECTOR Respiratory Rate 16 01/24/2017 3:19 PM ENROLLMENT MANAGEMENT DIRECTOR Oxygen Saturation 98% 01/24/2017 3:19 PM ENROLLMENT MANAGEMENT DIRECTOR Inhaled Oxygen Concentration - - Weight 87.8 kg (193 lb 9.6 oz) 01/24/2017 12:23 AM ENROLLMENT MANAGEMENT DIRECTOR Height 182.9 cm (6') 01/24/2017 12:23 AM ENROLLMENT MANAGEMENT DIRECTOR Body Mass Index 26.26 01/24/2017 12:23 AM ENROLLMENT MANAGEMENT DIRECTOR Plan of Treatment Not on file Results Not on filefrom Last 3 Months Insurance Payer Benefit Plan / Subscriber ID Effective Dates Phone Addre ss Type Group PREFERRED ONE PREFERRED ONE [id number] 2019-Present [address] [place] [address] (Home) [place] [phone] (Work) Care Teams Nursing Student Relationship Specialty Start Date End Date Efraín Martínez MD PCP - General Family Practice 01/24/17
[2022-02-13 04:50] LABS: Free T3 3.4 pg/mL (2.5-4.3)
== END 2022-02-11 08:06 | disposition home or self-care (01) ==
LOC: LONREF 08:05
PROVIDERS: PCP Family Medicine; Visit Provider Nurse Practitioner Family
DX: F32.9 Major depressive disorder, single episode, unspecified (principal)
CPT/HCPCS: 84481